=== PATIENT | male | born 1960 | race Caucasian/White ===

== ENCOUNTER 2020-02-04 18:31 | Inpatient (IN) ==
[2020-02-04] MEDS ORDERED: Ondansetron 4 MG/2 ML VIAL IVP ONE (18:48)
[2020-02-04] MEDS ORDERED: 0.9 % Sodium Chloride 1,000 ML IVC ONE (18:48)
[2020-02-04] MEDS ORDERED: Morphine Sulfate 2 MG/ML SYRINGE IVP ONE (18:48)
[2020-02-04 18:59] LABS: Bilirubin,Urine Small (Negative); Blood,Urine Negative (Negative); Clarity,Urine Clear (Clear); Color,Urine Dark Yellow (Yellow); Glucose,Urine (UA) Normal (Normal); Ketones,Urine Trace mg/dL (Negative); Leukocyte Esterase,Urine Negative (Negative); Nitrite,Urine Negative (Negative); PH,Urine 6.5 pH Units (5.0-8.0); Protein,Urine Trace mg/dL (Neg-Trace); Specific Gravity,Urine 1.029 (1.010-1.025); Urobilinogen,Urine >=8.0 mg/dL (Normal)
[2020-02-04 19:16] LABS: Basophils % 0.1 %; Eosinophils % 0.3 %; Hematocrit 46.5 % (37.5-50.1); Hemoglobin 15.3 g/dL (12.9-16.9); Immature Granulocytes % 0.2 % (0-4); Lymphocytes # 4.1 K/mcL (0.6-4.6); Lymphocytes % 35.4 %; Mean Corpuscular HGB Conc 32.9 g/dL (31.6-35.5); Mean Corpuscular Hemoglobin 29.7 pg (28.0-33.3); Mean Corpuscular Volume 90.3 fL (83.0-100.0); Mean Platelet Volume 9.9 fL (9.4-12.4); Monocytes # 0.5 K/mcL (0.0-1.3); Monocytes % 4.3 %; Neutrophils # 6.9 K/mcL (1.6-8.9); Platelet Count 172 K/mcL (140-400); Red Blood Count 5.15 M/mcL (4.19-5.50); Segmented Neutrophils % 59.7 %; White Blood Count 11.5 K/mcL (4.3-11.1)
[2020-02-04 19:39] LABS: Alanine Aminotransferase 17 Units/L (7-52); Albumin 4.5 g/dL (3.5-5.7); Albumin/Globulin Ratio 1.7 (1.1-2.2); Alkaline Phosphatase 69 Units/L (34-104); Aspartate Amino Transferase 17 Units/L (13-39); BUN/Creatinine Ratio 20 (6-26); Bilirubin,Direct 0.5 mg/dL (0.0-0.2); Bilirubin,Total 1.5 mg/dL (0.3-1.0); Blood Urea Nitrogen 17 mg/dL (6-20); Carbon Dioxide 24 mEq/L (23-29); Chloride 103 mEq/L (98-107); Globulin 2.6 g/dL (2.4-3.5); Glucose 168 mg/dL (70-105); Lipase 16 Units/L (11-82); Osmolality,Calculated 283 (280-300); Potassium 3.8 mEq/L (3.5-5.1); Sodium 134 mEq/L (136-145); Total Protein 7.1 g/dL (6.4-8.9); Troponin I < 0.03 ng/mL (< 0.04); eGFR For African Americans > 60 (> 60); eGFR For Non-African Americans > 60 (> 60)
[2020-02-04] MEDS ORDERED: Naloxone 0.4 MG/ML INJ IVP PRN (21:20)
[2020-02-04] MEDS: Ketorolac 15 MG/ML VIAL IVP PRN (22:22)
[2020-02-04] MEDS: 0.9 % Sodium Chloride 1,000 ML IVC SCH (22:36)
[2020-02-04] MEDS ORDERED: Pantoprazole 40 MG VIAL IVP ONE (23:49)
[2020-02-05] MEDS: Ondansetron 4 MG/2 ML VIAL IVP PRN (00:15)
[2020-02-05] MEDS ORDERED: *HR* Promethazine 25 MG/ML VIAL IVP ONE (02:01)
[2020-02-05 05:52] LABS: Hematocrit 45.3 % (37.5-50.1); Hemoglobin 14.8 g/dL (12.9-16.9); Mean Corpuscular HGB Conc 32.7 g/dL (31.6-35.5); Mean Corpuscular Hemoglobin 29.7 pg (28.0-33.3); Mean Corpuscular Volume 90.8 fL (83.0-100.0); Mean Platelet Volume 10.3 fL (9.4-12.4); Platelet Count 142 K/mcL (140-400); Red Blood Count 4.99 M/mcL (4.19-5.50); Red Cell Distribution Width 13.3 % (11.5-14.5); White Blood Count 5.9 K/mcL (4.3-11.1)
[2020-02-05 06:07] LABS: BUN/Creatinine Ratio 19 (6-26); Blood Urea Nitrogen 17 mg/dL (6-20); Calcium 8.8 mg/dL (8.6-10.3); Carbon Dioxide 24 mEq/L (23-29); Chloride 103 mEq/L (98-107); Glucose 161 mg/dL (70-105); Osmolality,Calculated 287 (280-300); Potassium 3.9 mEq/L (3.5-5.1); Sodium 136 mEq/L (136-145); eGFR For African Americans > 60 (> 60); eGFR For Non-African Americans > 60 (> 60)
[2020-02-05] MEDS: 0.9 % Sodium Chloride 1,000 ML IVC SCH ×2 (06:37→13:18)
[2020-02-05] MEDS: Ketorolac 15 MG/ML VIAL IVP PRN ×3 (08:42→22:24)
[2020-02-05] MEDS ORDERED: Chloraseptic Spray 177 ML BOTTLE MM PRN (09:53)
[2020-02-05] MEDS ORDERED: *HR* Dextrose 50 % in Water (Syg) 50 ML SYRINGE IVP PRN (12:22)
[2020-02-05] MEDS ORDERED: Dextrose Gel 15 GM/37.5 ML TUBE PO PRN ×2 (12:22)
[2020-02-05] MEDS ORDERED: D5% in Water 1,000 ML IVC PRN (12:22)
[2020-02-05 14:42] LABS: Estimated Average Glucose 143 mg/dl
[2020-02-05] MEDS: Stomatitis Mixture 5 ML UDC PO SCH ×2 (14:48→22:50)
[2020-02-05] MEDS: Insulin LISPRO 300 UNITS/3 ML VIAL SQ SCH (17:58)
[2020-02-05] MEDS ORDERED: Insulin DETEMIR 100 UNIT/ML X5UNITS SQ SCH (21:00)
[2020-02-06] MEDS: Ketorolac 15 MG/ML VIAL IVP PRN ×2 (04:48→13:07)
[2020-02-06] MEDS: 0.9 % Sodium Chloride 1,000 ML IVC SCH (04:51)
[2020-02-06] MEDS: Pantoprazole 40 MG VIAL IVP SCH (05:58)
[2020-02-06] MEDS: Insulin LISPRO 300 UNITS/3 ML VIAL SQ SCH ×3 (06:03→12:52)
[2020-02-06] MEDS: Stomatitis Mixture 5 ML UDC PO SCH ×4 (09:13→21:14)
[2020-02-06] MEDS: Ondansetron 4 MG/2 ML VIAL IVP PRN (11:28)
[2020-02-06] MEDS ORDERED: *HR* Promethazine 25 MG/ML VIAL IVP PRN (13:25)
[2020-02-06] MEDS ORDERED: Ondansetron 4 MG/2 ML VIAL IVP PRN (13:26)
[2020-02-06] MEDS ORDERED: TADALAFIL 10 MG PO PRN (16:31)
[2020-02-07] MEDS: Pantoprazole 40 MG VIAL IVP SCH (05:53)
[2020-02-07] MEDS ORDERED: Insulin LISPRO 300 UNITS/3 ML VIAL SQ SCH (07:30)
[2020-02-07] MEDS: Stomatitis Mixture 5 ML UDC PO SCH (07:36)
[2020-02-07] MEDS ORDERED: Linaclotide [Linzess] 72 MCG PO SCH (09:00)
[2020-02-07 10:23] VITALS: BP 147/79
== END 2020-02-07 11:39 | disposition home or self-care (01) | DRG 390 ==
LOC: 3ANU 18:31 → EMEROOARM 18:31 → SUATTDRO 21:31 → 3ANU 21:50
PROVIDERS: ADMIT Family Medicine; ATTEND Internal Medicine